=== PATIENT | male | born 1990 | race Caucasian/White ===

== ENCOUNTER 2017-07-10 04:21 | Emergency (ER) | payer OTHER ==
[~2017-07-10] VITALS: Ht 172.7 cm; Wt 70.8 kg
[~2017-07-10 04:21] MED LIST: BACTRIM DS TAB1 EAC1 PO; MUCINEX600 MG PO; NOHOMEMEDICATIONS; NYQUIL D COLD295 ML PO; TYLENOL COLD C1 EAC1; ULTRAM 50MG TAB50 MG PO; ZMAX ADULT2 GM/60 ML PO; ZPAK PO
[2017-07-10 04:32] VITALS: BP 154/86
== END 2017-07-10 05:11 | disposition home or self-care (01) ==
LOC: M.ERS 04:21
DX: S00.83XA Contusion of other part of head, initial encounter (principal); F17.210 Nicotine dependence, cigarettes, uncomplicated; Y04.0XXA Assault by unarmed brawl or fight, initial encounter

== ENCOUNTER 2019-06-01 05:24 | Emergency (ER) | payer OTHER ==
[~2019-06-01] VITALS: Ht 177.8 cm; Wt 65.8 kg
[2019-06-01 06:34] VITALS: BP 149/83
== END 2019-06-01 06:34 | disposition home or self-care (01) ==
LOC: M.ERS 05:24
DX: S61.011A Laceration without foreign body of right thumb without damage to nail, initial encounter (principal); W26.8XXA Contact with other sharp object(s), not elsewhere classified, initial encounter; Y93.89 Activity, other specified; Y92.89 Other specified places as the place of occurrence of the external cause; Y99.8 Other external cause status

== ENCOUNTER 2019-08-19 04:29 | Emergency (ER) | payer OTHER ==
[~2019-08-19] VITALS: Ht 172.7 cm; Wt 81.7 kg
[2019-08-19 05:00] LABS: INFLUENZA A ANTIGEN Negative (Negative); INFLUENZA B ANTIGEN Negative (Negative)
[2019-08-19] MEDS ORDERED: PROAIR HFA8.5 GM INH (05:07)
[2019-08-19] MEDS ORDERED: PREDNISONE50 MG PO (05:07)
[2019-08-19 05:23] VITALS: BP 153/96
== END 2019-08-19 05:24 | disposition home or self-care (01) ==
LOC: M.ERS 04:29
PROVIDERS: Emergency Medicine
DX: J06.9 Acute upper respiratory infection, unspecified (principal); J45.909 Unspecified asthma, uncomplicated; F17.210 Nicotine dependence, cigarettes, uncomplicated

== ENCOUNTER 2020-03-26 00:59 | Emergency (ER) | payer OTHER ==
[~2020-03-26] VITALS: Ht 172.7 cm; Wt 81.7 kg
[~2020-03-26 00:59] MED LIST changes: +PREDNISONE50 MG PO; +PROAIR HFA8.5 GM INH
[2020-03-26 01:20] LABS: URINE BILIRUBIN NEGATIVE (Negative); URINE BLOOD NEGATIVE (Negative); URINE CLARITY CLEAR; URINE COLOR YELLOW; URINE GLUCOSE-RANDOM NEGATIVE (Negative); URINE KETONES NEGATIVE (Negative); URINE LEUKOCYTES-REFLEX NEGATIVE (Negative); URINE NITRITE-REFLEX NEGATIVE (Negative); URINE PROTEIN NEGATIVE (Negative); URINE SPECIFIC GRAVITY >= 1.030 (1.005-1.030); URINE UROBILINOGEN 0.2 E.U./dl (0.2-1.0)
[2020-03-26] MEDS ORDERED: KEFLEX500 M1 PO (01:31)
[2020-03-26] MEDS ORDERED: BACTRIM DS TAB1 EACH PO (01:31)
[2020-03-26 01:57] VITALS: BP 161/93
== END 2020-03-26 01:57 | disposition still patient (30) ==
LOC: M.ERS 00:59
PROVIDERS: Emergency Medicine
DX: N49.2 Inflammatory disorders of scrotum (principal); J45.909 Unspecified asthma, uncomplicated; F17.210 Nicotine dependence, cigarettes, uncomplicated

== ENCOUNTER 2020-09-17 12:14 | Emergency (ER) | payer OTHER, MEDICAID ==
[~2020-09-17] VITALS: Ht 167.6 cm; Wt 84.8 kg
[~2020-09-17 12:14] MED LIST changes: +BACTRIM DS TAB1 EACH PO; +KEFLEX500 M1 PO
[2020-09-17] MEDS ORDERED: NAC500 MG PO (12:27)
[2020-09-17] MEDS ORDERED: SEROQUEL 50 MG50 M1 PO (12:27)
[2020-09-17] MEDS ORDERED: LORATIDINE 10 M10 M1 PO (12:59)
[2020-09-17] MEDS ORDERED: MEDROLDOSEPACK PO (12:59)
[2020-09-17 13:11] VITALS: BP 130/76
== END 2020-09-17 13:11 | disposition home or self-care (01) ==
LOC: M.ERS 12:14
DX: J06.9 Acute upper respiratory infection, unspecified (principal); J45.909 Unspecified asthma, uncomplicated; M06.9 Rheumatoid arthritis, unspecified; F17.210 Nicotine dependence, cigarettes, uncomplicated